=== PATIENT | male | born 1990 | race Caucasian/White ===

== ENCOUNTER 2018-05-19 07:14 | Emergency (ER) | payer SELFPAY ==
[~2018-05-19] VITALS: Ht 182.9 cm; Wt 104.8 kg
[2018-05-19] MEDS ORDERED: fentaNYL INJECTION 100 MCG/2 ML AMP IVP STA (07:46)
[2018-05-19] MEDS ORDERED: KETOROLAC 30 MG/ML VIAL IVP STA (07:46)
[2018-05-19] MEDS ORDERED: NS IV 1000 ML 1,000 ML IV ONE (07:46)
--- NOTE | 2018-05-19 08:22 | ED Abdominal Pain ---
General Chief Complaint: Abdominal/GI Problems Stated Complaint: R SIDE SHARP ABD PAIN Nursing Triage Note: PT PRESENTS TO ER WITH COMPLAINT OF RUQ ABD PAIN. STATES PAIN STARTED LAST NIGHT AND HAS WORSENED THROUGHOUT THE NIGHT. STATES HE HAD HIS APPENDIX REMOVED THREE YEARS AGO. Sepsis Screen: No Definite Risk Source of Information: Patient Exam Limitations: No Limitations History of Present Illness Date Seen by Provider: May 19, 2018 Time Seen by Provider: 07:25 Initial Comments Here with report of right-sided abdominal pain that has been intermittent over the last 8 years but worse since last night and certainly worse this morning. States he is unable to sleep because of the pain. Had appendectomy 3 years ago. He states no but is unable to find out what's gone on with his right side although he hasn't really followed up with the doctor about this either. Challenging history because patient doesn't directly answer questions and has to be redirected to answer questions. Reports nausea but no vomiting. Has had kidney stones one time before but different pain than this. Timing/Duration: 12-24 Hours Severity/Quality: Moderate, Severe, Sharp, Stabbing Location: RUQ, Flank Radiation: No Radiation Activities at Onset: None Modifying Factors: Worsens With Movement; Improves With Resting Associated Symptoms: No Back Pain, No Chest Pain, No Fever/Chills; Nausea/ Vomiting; No Shortness of Air, No Weakness Allergies and Home Medications Allergies Coded Allergies: No Known Drug Allergies (Unverified , 05/19/18) Patient Home Medication List Home Medication List Reviewed: Yes Review of Systems Review of Systems Constitutional: see HPI; No chills, No fever EENTM: No Symptoms Reported Respiratory: Denies Cough, Denies Shortness of Air Cardiovascular: Denies Chest Pain, Denies Edema Gastrointestinal: Abdominal Pain; Denies Diarrhea; Nausea Genitourinary: Denies Burning, Denies Discharge; Flank Pain; Denies Pain Musculoskeletal: no symptoms reported Skin: no symptoms reported All Other Systems Reviewed Negative Unless Noted: Yes Past Sqvirhf-Jhdfvg-Vzzvsd Hx Past Med/Social Hx: Reviewed Nursing Past Med/Soc Hx Patient Social History Alcohol Use: Denies Use Recreational Drug Use: No Type Used: Electronic/Vapor Recent Foreign Travel: No Contact w/Someone Who Travel: No Recent Infectious Disease Expo: No Recent Hopitalizations: No Immunizations Up To Date Tetanus Booster (TDap): Unknown PED Vaccines UTD: Yes Seasonal Allergies Seasonal Allergies: No Past Medical History Surgeries: Yes (SKIN GRAFT) Appendectomy Respiratory: No Cardiac: No Neurological: No Genitourinary: No Gastrointestinal: No Musculoskeletal: No Endocrine: No HEENT: No Cancer: No Psychosocial: No Blood Disorders: No Family Medical History Reviewed Nursing Family Hx Physical Exam Vital Signs Vital Signs - First Documented 05/19/18 07:18 Temp 98.0 Pulse 93 Resp 20 B/P (MAP) 135/85 (102) Pulse Ox 97 O2 Delivery Room Air Capillary Refill : Less Than 3 Seconds Height/Weight/BMI Height: 6'0" Weight: 231lbs. oz. 104.890003jp; BMI Method:Stated General Appearance: WD/WN, mild distress HEENT: PERRL/EOMI, pharynx normal Neck: full range of motion, supple Respiratory: lungs clear, normal breath sounds Cardiovascular: regular rate, rhythm, no murmur Peripheral Pulses: 2+ Dorsalis Pedis (R), 2+ Left Dors-Pedis (L), 2+ Radial Pulses (R), 2+ Radial Pulses (L) Gastrointestinal: soft; No guarding, No rebound; tenderness (right upper quadrant and right flank) Extremities: non-tender, normal inspection Back: normal inspection, no CVA tenderness, no vertebral tenderness Neurologic/Psychiatric: alert, oriented x 3 Skin: normal color, warm/dry Progress/Results/Core Measures Results/Orders Lab Results Laboratory Tests Test 05/19/18 08:05 05/19/18 09:26 Range/Units White Blood Count 10.3 4.3-11.0 10^3/uL Red Blood Count 5.44 4.35-5.85 10^6/uL Hemoglobin 16.2 13.3-17.7 G/DL Hematocrit 46 40-54 % Mean Corpuscular Volume 84 80-99 FL Mean Corpuscular Hemoglobin 30 25-34 PG Mean Corpuscular Hemoglobin Concent 36 32-36 G/DL Red Cell Distribution Width 12.6 10.0-14.5 % Platelet Count 286 130-400 10^3/uL Mean Platelet Volume 10.2 7.4-10.4 FL Neutrophils (%) (Auto) 76 H 42-75 % Lymphocytes (%) (Auto) 16 12-44 % Monocytes (%) (Auto) 6 0-12 % Eosinophils (%) (Auto) 1 0-10 % Basophils (%) (Auto) 0 0-10 % Neutrophils # (Auto) 7.8 1.8-7.8 X 10^3 Lymphocytes # (Auto) 1.7 1.0-4.0 X 10^3 Monocytes # (Auto) 0.6 0.0-1.0 X 10^3 Eosinophils # (Auto) 0.1 0.0-0.3 10^3/uL Basophils # (Auto) 0.0 0.0-0.1 10^3/uL Sodium Level 143 135-145 MMOL/L Potassium Level 4.0 3.6-5.0 MMOL/L Chloride Level 107 98-107 MMOL/L Carbon Dioxide Level 23 21-32 MMOL/L Anion Gap 13 5-14 MMOL/L Blood Urea Nitrogen 15 7-18 MG/DL Creatinine 1.28 0.60-1.30 MG/DL Estimat Glomerular Filtration Rate > 60 BUN/Creatinine Ratio 12 Glucose Level 115 H 70-105 MG/DL Calcium Level 9.7 8.5-10.1 MG/DL Corrected Calcium 8.5-10.1 MG/DL Total Bilirubin 0.7 0.1-1.0 MG/DL Aspartate Amino Transf (AST/SGOT) 46 H 5-34 U/L Alanine Aminotransferase (ALT/SGPT) 96 H 0-55 U/L Alkaline Phosphatase 84 40-136 U/L Total Protein 7.8 6.4-8.2 GM/DL Albumin 4.8 H 3.2-4.5 GM/DL Lipase 26 8-78 U/L Urine Color YELLOW Urine Clarity CLEAR Urine pH 5 5-9 Urine Specific [place] 1.030 H 1.016-1.022 Urine Protein 1+ H NEGATIVE Urine Glucose (UA) NEGATIVE NEGATIVE Urine Ketones 1+ H NEGATIVE Urine Nitrite NEGATIVE NEGATIVE Urine Bilirubin NEGATIVE NEGATIVE Urine Urobilinogen 1 NORMAL MG/DL Urine Leukocyte Esterase NEGATIVE NEGATIVE Urine RBC (Auto) NEGATIVE NEGATIVE Urine RBC NONE /HPF Urine WBC NONE /HPF Urine Squamous Epithelial Cells NONE /HPF Urine Crystals NONE /LPF Urine Bacteria NEGATIVE /HPF Urine Casts NONE /LPF Urine Mucus NEGATIVE /LPF Urine Culture Indicated NO My Orders Orders - TOBY WHELAN MD Cbc With Automated Diff (05/19/18 07:25) Comprehensive Metabolic Panel (05/19/18 07:25) Lipase (05/19/18 07:25) Ua Culture If Indicated (05/19/18 07:25) Saline Lock/Iv-Start (05/19/18 07:25) Ns Iv 1000 Ml (Sodium Chloride 0.9%) (05/19/18 07:46) Fentanyl Injection (Sublimaze Injection (05/19/18 07:46) Ketorolac Injection (Toradol Injection) (05/19/18 07:46) Us Gallbladder 13496 (05/19/18 07:46) Levofloxacin Tablet (Levaquin Tablet) (05/19/18 14:00) Medications Given in ED Current Medications Medications Dose Ordered Sig/Gabi Route Start Time Stop Time Status Last Admin Dose Admin Sodium Chloride 1,000 ml @ 0 mls/hr Q0M ONCE IV 05/19/18 07:46 05/19/18 07:48 DC 05/19/18 08:14 1,000 MLS/HR Vital Signs/I&O 05/19/18 07:18 Temp 98.0 Pulse 93 Resp 20 B/P (MAP) 135/85 (102) Pulse Ox 97 O2 Delivery Room Air Blood Pressure Mean: 102 Progress Progress Note : Progress Note Seen and evaluated. IV, labs, UA, normal saline 1 L bolus, fentanyl 50 g IV and Toradol 30 mg IV ordered. We will get a gallbladder ultrasound. Monitor patient. 1323: Plan delayed due to critical patients in the emergency department. Ultrasound complete and does show gallstone and sludge. I did discuss the case with Dr. Manley and he will come see the patient in the emergency department. Plan is surgery today or tomorrow depending on how things go. This can be done as outpatient. Pending Dr. Manley review. Patient and family agree with plan. 1400: Dr. Manley evaluating now. He is requested 750 mg of Levaquin by mouth. He will do the cholecystectomy laparoscopic as outpatient. Discharged home with return precautions. Patient verbalize understanding instructions and agreement with plan. Diagnostic Imaging Diagonstic Imaging: Ultrasound Plain Films/CT/US/NM/MRI: abdomen Comments NAME: JESS PRICE MED REC#: [id number] PT STATUS: REG ER : 1990 PHYSICIAN: TOBY WHELAN MD ADMIT DATE: 05/19/18/ER Signed Date of Exam: 05/19/18 US GALLBLADDER [id number] PROCEDURE: US Gallbladder. TECHNIQUE: Multiple real-time grayscale images were obtained over the right upper quadrant in various projections. INDICATION: Right upper quadrant pain. FINDINGS: Liver is normal in size without focal lesions. There is no biliary ductal dilatation. Common bile duct measures less than 5 mm. There is a 2 cm echogenic density adhered to the gallbladder wall. There is no internal blood flow or posterior acoustic shadowing. There also appears to be a stone lodged in the neck of the gallbladder. There may be some minimal gallbladder sludge. Pancreas is obscured by bowel gas. Right kidney is normal. There is no ascites. IMPRESSION: Findings suspect for a stone lodged in the neck of the gallbladder. Acute cholecystitis cannot be excluded. Recommend clinical correlation. A 2 cm echogenic structure adherent to the gallbladder wall without internal blood flow or posterior acoustic shadowing. This is nonspecific, however, likely reflects tumefactive sludge or less likely polyp. Dictated by: Dictated on workstation # [id number] Dict: 05/19/18 0858 Trans: 05/19/18915 Interpreted by: EVELYN PALACIOS MD Electronically signed by: EVELYN PALACIOS MD 05/19/18915 Departure Impression Primary Impression: Cholelithiasis Qualified Codes: K80.20 - Calculus of gallbladder without cholecystitis without obstruction Disposition: 01 HOME, SELF-CARE Condition: Stable Departure-Patient Inst. Decision time for Depature: 14:03 Referrals: HUBERT MANLEY DO Patient Instructions: Gallstones (DC), Acute Abdomen (Belly Pain), Adult (DC) Add. Discharge Instructions: All discharge instructions reviewed with patient and/or family. Voiced understanding. Follow-up with Dr. Manley and go to surgical center per his instructions. Clear liquid diet today. Take medications as directed. Follow-up with your doctor as needed. Keep surgery Center appointment as scheduled. Copy Copies To 1: HUBERT MANLEY TIMOTHY D MD May 19, 2018 08:22
[2018-05-19 08:23] LABS: BASOPHILS % (AUTO) 0 % (0-10); EOSINOPHILS # (AUTO) 0.1 10^3/uL (0.0-0.3); EOSINOPHILS % (AUTO) 1 % (0-10); HEMATOCRIT 46 % (40-54); HEMOGLOBIN 16.2 G/DL (13.3-17.7); LYMPHOCYTES # (AUTO) 1.7 X 10^3 (1.0-4.0); LYMPHOCYTES % (AUTO) 16 % (12-44); MEAN CORPUSCULAR HEMOGLOBIN 30 PG (25-34); MEAN CORPUSCULAR HGB CONC 36 G/DL (32-36); MEAN CORPUSCULAR VOLUME 84 FL (80-99); MEAN PLATELET VOLUME 10.2 FL (7.4-10.4); MONOCYTES # (AUTO) 0.6 X 10^3 (0.0-1.0); MONOCYTES % (AUTO) 6 % (0-12); NEUTROPHILS # (AUTO) 7.8 X 10^3 (1.8-7.8); NEUTROPHILS % (AUTO) 76 % (42-75); PLATELET COUNT 286 10^3/uL (130-400); RED CELL DISTRIBUTION WIDTH 12.6 % (10.0-14.5); WHITE BLOOD COUNT 10.3 10^3/uL (4.3-11.0)
[2018-05-19 08:40] LABS: ALANINE AMINOTRANSFERASE 96 U/L (0-55); ALBUMIN 4.8 GM/DL (3.2-4.5); ALKALINE PHOSPHATASE 84 U/L (40-136); BILIRUBIN,TOTAL 0.7 MG/DL (0.1-1.0); BUN/CREATININE RATIO 12; CALCIUM 9.7 MG/DL (8.5-10.1); CARBON DIOXIDE 23 MMOL/L (21-32); CHLORIDE 107 MMOL/L (98-107); CREATININE SERUM 1.28 MG/DL (0.60-1.30); GFR ESTIMATED > 60; GLUCOSE 115 MG/DL (70-105); LIPASE 26 U/L (8-78); SODIUM 143 MMOL/L (135-145); TOTAL PROTEIN 7.8 GM/DL (6.4-8.2)
--- NOTE | 2018-05-19 09:08 | Diagnostic Imaging Report ---
PROCEDURE: US Gallbladder. TECHNIQUE: Multiple real-time grayscale images were obtained over the right upper quadrant in various projections. INDICATION: Right upper quadrant pain. FINDINGS: Liver is normal in size without focal lesions. There is no biliary ductal dilatation. Common bile duct measures less than 5 mm. There is a 2 cm echogenic density adhered to the gallbladder wall. There is no internal blood flow or posterior acoustic shadowing. There also appears to be a stone lodged in the neck of the gallbladder. There may be some minimal gallbladder sludge. Pancreas is obscured by bowel gas. Right kidney is normal. There is no ascites. IMPRESSION: Findings suspect for a stone lodged in the neck of the gallbladder. Acute cholecystitis cannot be excluded. Recommend clinical correlation. A 2 cm echogenic structure adherent to the gallbladder wall without internal blood flow or posterior acoustic shadowing. This is nonspecific, however, likely reflects tumefactive sludge or less likely polyp. Dictated by: Dictated on workstation # [id number]
[2018-05-19 09:33] LABS: BILIRUBIN,URINE NEGATIVE (NEGATIVE); CLARITY,URINE CLEAR; COLOR,URINE YELLOW; GLUCOSE, URINE (UA) NEGATIVE (NEGATIVE); KETONES,URINE 1+ (NEGATIVE); LEUKOCYTE ESTERASE ,URINE NEGATIVE (NEGATIVE); NITRITE,URINE NEGATIVE (NEGATIVE); PH,URINE 5 (5-9); PROTEIN,URINE 1+ (NEGATIVE); UROBILINOGEN,URINE 1 MG/DL (NORMAL)
[2018-05-19 09:49] LABS: BACTERIA,URINE NEGATIVE /HPF
[2018-05-19] MEDS ORDERED: LEVOFLOXACIN 750 MG TAB (LEVAQUIN) PO ONE (14:00)
--- NOTE | 2018-05-19 14:24 | Consultation ---
History of Present Illness History of Present Illness Patient Consulted On(elliott/time) 05/19/18 14:18 Date Seen by Provider: May 19, 2018 Time Seen by Provider: 14:19 History of Present Illness Consult requested by Dr. Urbina for cholelithiasis Patient seen and evaluated in emergency department. Patient is a 27-year-old male who states she's been having pain on and off for about 8 years. Patient pain worsened yesterday and continued can get any sleep. He woke up this morning and was still having pain in the right upper quadrant. Moderate to severe. Currently not having any pain and this has resolved. Patient states that there is no radiation. Nothing was seems to make the pain worse. Nothing was seems to make it better either. He has a little bit of nausea but no emesis. Patient denies any other complaints at this time. He denies any fever sweats chills shortness of breath or chest pain. Patient had gallbladder ultrasound demonstrating what appears to be a fixed stone in the neck of the gallbladder. No gallbladder wall thickening no pericholecystic fluid. Allergies and Home Medications Allergies Coded Allergies: No Known Drug Allergies (Unverified , 05/19/18) Patient Home Medication List Home Medication List Reviewed: Yes Past Hewrovf-Tpzffk-Noxiia Hx Patient Social History Alcohol Use: Denies Use Recreational Drug Use: No Type Used: Electronic/Vapor Recent Foreign Travel: No Contact w/Someone Who Travel: No Recent Infectious Disease Expo: No Recent Hopitalizations: No Immunizations Up To Date Tetanus Booster (TDap): Unknown PED Vaccines UTD: Yes Seasonal Allergies Seasonal Allergies: No Surgeries History of Surgeries: Yes (SKIN GRAFT) Surgeries: Appendectomy Respiratory History of Respiratory Disorde: No Cardiovascular History of Cardiac Disorders: No Neurological History of Neurological Disord: No Genitourinary History of Genitourinary Disor: No Gastrointestinal History of Gastrointestinal Di: No Musculoskeletal History of Musculoskeletal Dis: No Endocrine History of Endocrine Disorders: No HEENT History of HEENT Disorders: No Cancer History of Cancer: No Psychosocial History of Psychiatric Problem: No Blood Transfusions History of Blood Disorders: No Family Medical History Significant Family History: No Pertinent Family Hx Review of Systems-General Constitutional: no symptoms reported EENTM: no symptoms reported Respiratory: no symptoms reported Cardiovascular: no symptoms reported Gastrointestinal: RUQ, see HPI, nausea Genitourinary: no symptoms reported Musculoskeletal: no symptoms reported Skin: no symptoms reported Psychiatric/Neurological: No Symptoms Reported Physical Exam-General Problems Physical Exam Vital Signs Vital Signs - First Documented 05/19/18 07:18 Temp 98.0 Pulse 93 Resp 20 B/P (MAP) 135/85 (102) Pulse Ox 97 O2 Delivery Room Air Capillary Refill : Less Than 3 Seconds General Appearance: WD/WN, no apparent distress HEENT: PERRL/EOMI, normal ENT inspection Neck: non-tender, supple Respiratory: chest non-tender, no respiratory distress, no accessory muscle use Cardiovascular: regular rate, rhythm Gastrointestinal: soft, tenderness (slight right upper quadrant) Back: normal inspection Extremities: normal inspection Neurologic/Psychiatric: harness cleaner II-XII nml as tested, no motor/sensory deficits, alert, normal mood/affect, oriented x 3 Skin: normal color, warm/dry Lymphatic: no adenopathy Data Review Labs Laboratory Tests 05/19/18 08:05: White Blood Count 10.3, Red Blood Count 5.44, Hemoglobin 16.2, Hematocrit 46, Mean Corpuscular Volume 84, Mean Corpuscular Hemoglobin 30, Mean Corpuscular Hemoglobin Concent 36, Red Cell Distribution Width 12.6, Platelet Count 286, Mean Platelet Volume 10.2, Neutrophils (%) (Auto) 76H, Lymphocytes (%) (Auto) 16 , Monocytes (%) (Auto) 6, Eosinophils (%) (Auto) 1, Basophils (%) (Auto) 0, Neutrophils # (Auto) 7.8, Lymphocytes # (Auto) 1.7, Monocytes # (Auto) 0.6, Eosinophils # (Auto) 0.1, Basophils # (Auto) 0.0, Sodium Level 143, Potassium Level 4.0, Chloride Level 107, Carbon Dioxide Level 23, Anion Gap 13, Blood Urea Nitrogen 15, Creatinine 1.28, Estimat Glomerular Filtration Rate > 60, BUN/ Creatinine Ratio 12, Glucose Level 115H, Calcium Level 9.7, Corrected Calcium , Total Bilirubin 0.7, Aspartate Amino Transf (AST/SGOT) 46H, Alanine Aminotransferase (ALT/SGPT) 96H, Alkaline Phosphatase 84, Total Protein 7.8, Albumin 4.8H, Lipase 26 05/19/18 09:26: Urine Color YELLOW, Urine Clarity CLEAR, Urine pH 5, Urine Specific [place] 1.030H, Urine Protein 1+H, Urine Glucose (UA) NEGATIVE, Urine Ketones 1+H, Urine Nitrite NEGATIVE, Urine Bilirubin NEGATIVE, Urine Urobilinogen 1, Urine Leukocyte Esterase NEGATIVE, Urine RBC (Auto) NEGATIVE, Urine RBC NONE, Urine WBC NONE, Urine Squamous Epithelial Cells NONE, Urine Crystals NONE, Urine Bacteria NEGATIVE, Urine Casts NONE, Urine Mucus NEGATIVE, Urine Culture Indicated NO Assessment/Plan Assessment/Plan Assessment/Plan Right upper quadrant abdominal pain Symptomatic cholelithiasis Patient feeling better at this time in the emergency department. We'll plan on laparoscopic cholecystectomy tomorrow. Patient encouraged to stay on clear liquids today nothing to drink after midnight. Patient was discussed risk and benefits of laparoscopic cholecystectomy intraoperative cholangiogram all other indicated procedures and patient wishes to proceed. Patient scheduled for tomorrow. All questions answered. HUBERT MANLEY DO May 19, 2018 14:24
[2018-05-19 15:06] VITALS: BP 117/69
[2018-05-20] MEDS ORDERED: ACHD5005 PO (13:31)
[2018-05-20] MEDS ORDERED: DOCU-143 PO (13:31)
== END 2018-05-19 15:04 | disposition home or self-care (01) ==
LOC: EDBD → ER 07:16
DX: K80.20 Calculus of gallbladder without cholecystitis without obstruction (principal); Z90.49 Acquired absence of other specified parts of digestive tract; Z87.442 Personal history of urinary calculi; Z94.5 Skin transplant status
CPT/HCPCS: 36415; 76705; 80053; 81000; 83690; 85025

== ENCOUNTER → 2018-05-19 | Outpatient (CLI) | payer SELFPAY ==
[~2018-05-19] MED LIST: ACHD5005 PO; DOCU-143 PO
== END | disposition home or self-care (01) ==
LOC: EDBD → PREOP 14:33
PROVIDERS: ATTEND Surgery
DX: Z01.818 Encounter for other preprocedural examination (principal)

== ENCOUNTER 2018-05-20 11:31 | Day surgery (SDC) | payer SELFPAY ==
[~2018-05-20] VITALS: Ht 180.3 cm; Wt 106.6 kg
--- NOTE | 2018-05-20 11:44 | Progress Note-Pre Operative ---
Pre-Operative Progress Note H&P Reviewed The H&P was reviewed, patient examined and no changes noted. Date Seen by Provider: May 20, 2018 Time Seen by Provider: 11:43 Date H&P Reviewed: May 20, 2018 Time H&P Reviewed: 11:43 Pre-Operative Diagnosis: SYMPTOMATIC CHOLELITHIASIS HUBERT MANLEY DO May 20, 2018 11:44
[2018-05-20] MEDS ORDERED: CATHETER FLUSH 10 ML SYR IV PRN (11:45)
[2018-05-20] MEDS ORDERED: ceFAZolin 2 GM IV Premixed 50 ML IV ONE (11:45)
[2018-05-20] MEDS ORDERED: MIDAZOLAM 2 MG/2 ML (VERSED) VIAL ONE (12:06)
[2018-05-20] MEDS ORDERED: DEXAMETHASONE 10 MG/ML (DECADRON) 1 ML VIAL ONE (12:06)
[2018-05-20] MEDS ORDERED: LIDOCAINE PF 2% 5 ML (XYLOCAINE) VIAL ONE (12:06)
[2018-05-20] MEDS ORDERED: proPOfol 200 MG/20 ML (DIPRIVAN) VIAL IV ONE (12:06)
[2018-05-20] MEDS ORDERED: ONDANSETRON 4 MG/2 ML (SDV) Z0FRAN ONE (12:06)
[2018-05-20] MEDS ORDERED: SEVOFLURANE (ULTANE) 15 ML INHAL SOLN ONE ×4 (12:06→13:21)
[2018-05-20] MEDS ORDERED: fentaNYL INJECTION 100 MCG/2 ML AMP ONE ×2 (12:07→12:57)
[2018-05-20 12:18] VITALS: BP 133/73
[2018-05-20] MEDS ORDERED: LACTATED RINGERS 1,000 ML IV PRN (12:29)
[2018-05-20] MEDS ORDERED: ROCURONIUM 10 MG/ML 5 ML SYRINGE IV ONE (12:32)
[2018-05-20] MEDS ORDERED: BUP/EPI 0.5% 1:200,000 (SENSORCAINE) 30 ML VIAL ONE (12:36)
[2018-05-20] MEDS ORDERED: LIDOCAINE 1% INJ 20 ML 20 ML VIAL ONE (12:36)
[2018-05-20] MEDS ORDERED: NEOSTIGMINE 1 MG/ML 5 ML SYRINGE ONE (13:23)
[2018-05-20] MEDS ORDERED: GLYCOPYRROLATE 0.2 MG/ML (ROBINUL) 2 ML VIAL ONE (13:23)
--- NOTE | 2018-05-20 13:30 | Progress Note-Post Operative ---
Post-Operative Progess Note Surgeon (s)/Occupancy Specialist (s) Surgeon HUBERT MANLEY DO Occupancy Specialist: Dr. King Pre-Operative Diagnosis SYMPTOMATIC CHOLELITHIASIS Post-Operative Diagnosis same Procedure & Operative Findings Date of Procedure 05/20/18 Procedure Performed/Findings lap francisco j c ioc Anesthesia Type gen Estimated Blood Loss Estimated blood loss (mL): min Specimens/Packing Specimens Removed gallbladder HUBERT MANLEY DO May 20, 2018 13:30
[2018-05-20] MEDS ORDERED: DOCU-143 PO (13:31)
[2018-05-20] MEDS ORDERED: ACHD5005 PO (13:31)
--- NOTE | 2018-05-20 13:32 | Discharge Inst-Simple/Standard ---
Discharge Inst-Standard Discharge Medications New, Converted or Re-Newed RX: RX on Chart Patient Instructions/Follow Up Plan of Care/Instructions/FU: 2 weeks Hector Activity as Tolerated: No Discharge Diet: Regular Diet Other Inst to Patient Follow up Appt: Make appointment for 2 weeks. Instructions: No lifting greater than 10 pounds. No strenuous activity. May shower in 24 hours, no tub bath or soaking. Use incentive spirometer at home as directed. No Smoking Skin/Wound Care: You have special glue over incisions it will fall off on its own. Symptoms to Report: Appetite Changes, Extremity Discoloration, Numbness/Tingling, Swelling Increased , Bleeding Excessive, Eyesight Changes, Pain Increased, Urine Color Change, Constipation(Persistent), Fever over 101 degree F, Pain/Pressure in chest, Urinating Difficulty, Cough Up/Vomit Blood, Heart Beat Irreg/Pounding, Pain/ Pressure in jaw, Vaginal Bleeding Increase, Cramps in feet or legs, Lightheadedness, Pain/Pressure in shoulder, Diarrhea(Persistent), Memory Changes Suddenly, Questions/Concerns, Weight gain consecutive days, Dizziness/ Fainting, Nausea/Vomiting, Shortness of Breath, Weight gain over 2 pounds. If eyes or skin turn yellow notify physician. If questions or concerns contact your physician Or seek help at emergency department. HUBERT MANLEY DO May 20, 2018 13:32
--- NOTE | 2018-05-20 13:39 | Diagnostic Imaging Report ---
INDICATION: Cholelithiasis with acute cholecystitis not excluded. Undergoing laparoscopic cholecystectomy. FINDINGS: Cine intraoperative cholangiogram images (112 images) are submitted. There is cannulation of the extra hepatic biliary tree. Images demonstrate contrast opacification of the biliary system. Biliary tree is not significantly dilated. Very slight nodular filling defect questioned over the low common bile duct. There was no persistent filling defect to indicate a retained stone. Flow was present into the duodenum. IMPRESSION: Negative laparoscopic cholangiogram. Dictated by: Dictated on workstation # [id number]
[2018-05-20] MEDS ORDERED: HYDROmorphone 2 MG/ML VIAL (DILAUDID) IV ONE (14:00)
[2018-05-20] MEDS ORDERED: ONDANSETRON 4 MG/2 ML (SDV) Z0FRAN IVP PRN (14:00)
[2018-05-20 14:50] VITALS: BP 121/87
--- NOTE | 2018-05-20 14:52 | Anesthesia-General Post-Op ---
General Patient Condition Mental Status/LOC: Same as Preop Cardiovascular: Satisfactory Nausea/Vomiting: Absent Respiratory: Satisfactory Pain: Controlled Complications: Absent Post Op Complications Complications None Follow Up Care/Instructions Patient Instructions None needed. Anesthesia/Patient Condition Patient Condition Patient is doing well, no complaints, stable vital signs, no apparent adverse anesthesia problems. ELOY CHAVEZ DO May 20, 2018 14:51
[2018-05-20] MEDS ORDERED: HYDROcodone/APAP 5 MG/325 MG (LORTAB) TAB ONE (14:58)
[2018-05-20] MEDS ORDERED: HYDROcodone/APAP 5 MG/325 MG (LORTAB) TAB PO ONE (15:00)
[2018-05-20 15:20] VITALS: BP 113/68
[2018-05-20 15:50] VITALS: BP 121/77
[2018-05-20] MEDS ORDERED: NS IV 500 ML 500 ML IV SCH (16:30)
--- NOTE | 2018-05-21 05:41 | OPERATIVE REPORT ---
DATE OF SERVICE: 05/20/2018 PREOPERATIVE DIAGNOSIS: Symptomatic cholelithiasis. POSTOPERATIVE DIAGNOSIS: Symptomatic cholelithiasis. PROCEDURE: Laparoscopic cholecystectomy with intraoperative cholangiogram. SURGEON: Hubert Young DO COLLAR SEWER: Dr. King, assisted in retraction, dissection and closure. ANESTHESIA: General. ESTIMATED BLOOD LOSS: Minimal. COMPLICATIONS: None. INDICATIONS: The patient is a 27-year-old male who presented to the Emergency Department who was having right upper quadrant abdominal pain. The patient had appearance of a gallstone stuck within the neck of the gallbladder. The patient's pain was relieved. He wished to be discharged at that time and come in today for cholecystectomy. The patient understands risks and benefits of procedure and wished to proceed with procedure. Consent was signed in the chart. DESCRIPTION OF PROCEDURE: The patient was taken to the operating suite, was prepped and draped in sterile fashion. A surgical pause was performed. Local anesthetic was infiltrated just above the umbilicus. An 11 blade scalpel was used to make incision and cautery used to dissect down to the fascia, which was then scored, grasped and elevated and the abdomen was then entered. An 0 Vicryl was placed in a [id number] fashion for closure at the end of the case. The balloon trocar was inserted in the abdomen and pneumoperitoneum was achieved. Under direct visualization of the laparoscope, a 5 mm trocar was placed in subxiphoid region and two 5 mm trocars were placed in the right upper quadrant. Gallbladder was grasped, elevated. There were some adhesions to it, which had to be taken down with both blunt and cautery dissection. The cystic duct and cystic artery were then dissected out. Clips were placed on the proximal and distal portion of the cystic artery and a clip was placed on distal portion of the cystic duct. The duct was then partially transected. Arrow catheter was inserted into the duct and cholangiogram was performed. There were no filling defects noted and contrast made its way into the duodenum without difficulty. The catheter was then removed. Clips were placed on the proximal portion of the cystic duct and the duct and artery were then completely transected. Hook cautery used to dissect the gallbladder from the gallbladder fossa achieving hemostasis. Once removed, it was placed in an Endobag and removed through the 12 mm trocar site. When removing the gallbladder from the liver, small hole was made in the gallbladder during a small amount of bile, which was irrigated and suctioned as well. The Endobag was removed through the 12 mm trocar site. The trocar was placed back in. Copious amounts of irrigation was used to irrigate and suction. Hemostasis was achieved. The trocars were removed. The 12 mm fascial defect 0 Vicryl in a [id number] fashion placed at the beginning of case was then tied. The skin was then closed using 4-0 Monocryl in subcuticular fashion. The abdomen was then washed and dried and sterile bandage was applied. The patient tolerated procedure well without any complications. He was taken to recovery room in stable condition. Job ID: [id number] DocumentID: [id number] Dictated Date: 05/20/2018 21:36:21 Outside Plant Supervisor Date: 05/21/2018 05:40:36 Dictated By: HUBERT YOUNG DO
== END 2018-05-20 15:50 | disposition home or self-care (01) ==
LOC: EDBD 11:31 → SDC 11:31
PROVIDERS: ATTEND Surgery
DX: K80.10 Calculus of gallbladder with chronic cholecystitis without obstruction (principal); Z11.2 Encounter for screening for other bacterial diseases; K21.9 Gastro-esophageal reflux disease without esophagitis; F17.290 Nicotine dependence, other tobacco product, uncomplicated
CPT/HCPCS: 87081

== ENCOUNTER 2018-12-19 05:56 | Emergency (ER) | payer SELFPAY ==
[~2018-12-19] VITALS: Ht 180.3 cm; Wt 97.3 kg
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
[2018-12-19] MEDS ORDERED: KETOROLAC 30 MG/ML VIAL IM ONE (06:30)
--- NOTE | 2018-12-19 07:17 | Diagnostic Imaging Report ---
Clinical indication: Patient with shortness of breath, migraine. Patient states has fallen at different times. Exam: Chest x-ray PA and lateral views. Comparisons: None. Findings: Lungs/pleura: Lungs are clear. There is no pneumothorax. There is no pleural effusion. Mediastinum: Unremarkable. Pulmonary vasculature: Unremarkable. Heart: Unremarkable. Bones/extrathoracic soft tissue: Unremarkable. Impression: There is no radiographic evidence of acute cardiopulmonary process. Dictated by: Dictated on workstation # [id number]
[2018-12-19] MEDS ORDERED: CYCL10TA9 PO (07:23)
[2018-12-19] MEDS ORDERED: CARB15DR87 OT (07:23)
[2018-12-19] MEDS ORDERED: BENZ-13 PO (07:23)
[2018-12-19 07:37] VITALS: BP 138/86
== END 2018-12-19 07:37 | disposition home or self-care (01) ==
LOC: EDUNIT# 05:56 → ER 05:59
DX: J40 Bronchitis, not specified as acute or chronic (principal); M62.838 Other muscle spasm; T16.1XXA Foreign body in right ear, initial encounter; F17.210 Nicotine dependence, cigarettes, uncomplicated; F17.290 Nicotine dependence, other tobacco product, uncomplicated; Z90.49 Acquired absence of other specified parts of digestive tract
CPT/HCPCS: 71046; 87804; 96372